=== PATIENT | female | born 1990 | race Caucasian/White ===

== ENCOUNTER 2021-08-09 15:24 | Emergency (ER) | payer OTHER ==
[~2021-08-09] VITALS: Ht 165.1 cm; Wt 81.7 kg
[2021-08-09 17:19] LABS: ABSOLUTE NEUTROPHILS 2.4 thou/uL (1.4-8.2); BASOPHILS 0.7 % (0.0-2.0); EOSINOPHILS 5.6 % (0.0-3.0); HEMATOCRIT 42.5 % (37.0-47.0); HEMOGLOBIN 14.6 gm/dL (12.0-15.0); LYMPHOCYTES 36.8 % (24.0-44.0); MCHC 34.4 g/dL (28.0-37.0); MONOCYTES 14.3 % (1.0-8.0); PLATELET COUNT 243 thou/uL (150-400); POLYS 42.6 % (36.0-66.0); RBC 4.57 mil/uL (4.20-5.00); RDW 12.8 % (10.5-14.5); WBC 5.5 thou/uL (4.0-11.0)
[2021-08-09 17:23] LABS: ANION GAP 6 mmol/L (7-16); BUN 14 mg/dL (7-18); CALCIUM 9.1 mg/dL (8.5-10.1); CHLORIDE 103 mmol/L (98-107); CO2 25 mmol/L (21-32); CREATININE 0.6 mg/dL (0.6-1.0); GLUCOSE 86 mg/dL (74-106); POTASSIUM 4.2 mmol/L (3.5-5.1); SODIUM 134 mmol/L (136-145)
[2021-08-09 17:33] LABS: ALBUMIN 3.7 g/dL (3.4-5.0); SGOT 21 U/L (15-37); SGPT 24 U/L (30-65); TOTAL BILIRUBIN 0.2 mg/dL (0.2-1.0); TOTAL PROTEIN 7.2 g/dL (6.4-8.2)
[2021-08-09 19:09] VITALS: BP 115/82
--- NOTE | 2021-08-10 08:15 | EKG ---
[address] [address] ELECTROCARDIOGRAM REPORT Name: KENNETH CARPENTER Room #: [facility] [place]#: [id number] Admission: 08/09/21 Attend Phys: Discharge: 08/09/21 Date of : 88 Report #: [id number] [facility] ED Test Date: 2021-08-09 Test Time: 15:32:29 Pat Name: KENNETH CARPENTER Department: Room: Gender: Geographic Information System Analyst: MARIVEL : 1990 Requested By: Melani Cornelius Order Number: [id number] MD: Jasson Rosenberg Measurements Intervals [place] Rate: 75 P: 38 ME: 155 QRS: 58 QRSD: 95 T: 58 QT: 369 QTc: 413 Interpretive Statements Sinus rhythm Normal tracing No previous ECG available for comparison Electronically Signed On 08-10-2021 8:14:48 [employer] by Jasson Rosenberg [email or web address] <ELECTRONICALLY SIGNED> By: Jasson Rosenberg MD, [facility] 08/10/21 0814 1532 1532 Jasson Rosenberg MD, FACC /EPI
== END 2021-08-09 19:12 | disposition home or self-care (01) ==
LOC: ER 15:24
PROVIDERS: Nurse Practitioner Family
DX: R07.89 Other chest pain (principal); R10.13 Epigastric pain